=== PATIENT | female | born 1970 | race Caucasian/White ===

== ENCOUNTER 2019-02-06 14:00 | Observation (INO) ==
[2019-02-06] MEDS ORDERED: ZOFRAN IV PRN (14:49)
[2019-02-06] MEDS ORDERED: TYLENOL PO PRN (14:49)
[2019-02-06 15:27] LABS: BASO# 0.01 X1000 (0.0-0.2); BASO% 0.2 % (0.0-0.8); IMM GRAN# 0.01 X1000 (0.0-0.04); IMM GRAN% 0.2 % (0.0-0.5); MCV 89.5 FL (81-99)
[2019-02-06 15:40] LABS: EOS# 0.18 X1000 (0.0-0.7); EOS% 3.8 % (0.0-10.0); HEMATOCRIT 34.8 % (37.0-47.0); HEMOGLOBIN 11.6 g/dL (12.0-16.0); LYMPH# 1.51 X1000 (1.2-3.4); LYMPH% 32.1 % (20.5-51.1); MCH 29.8 PG (27-31); MCHC 33.3 g/dL (33-37); MONO# 0.43 X1000 (0.11-0.59); MONO% 9.1 % (1.7-9.3); MPV 10.4 FL (7.4-10.4); NEUT# 2.57 X1000 (1.4-6.5); NEUT% 54.6 % (42.2-75.2); PLT 157 X1000 (130-400); RBC 3.89 XMIL (4.2-5.4); RDW 11.5 % (11.5-14.5); WBC 4.71 X1000 (4.8-10.8)
[2019-02-06 15:42] LABS: INR 0.94
[2019-02-06 15:43] LABS: PTT 29.5 Seconds (22.3-41.8)
[2019-02-06 15:51] LABS: AGAP 8; ALBUMIN 3.3 g/dL (3.5-5.0); ALKALINE PHOSPHATASE 125 U/L (32-104); BUN 13 mg/dL (8-22); CALCIUM 8.3 mg/dL (8.8-10.2); CHLORIDE 108 mmol/L (98-107); CK PROFILE 94 U/L (24-173); COSMO 283; CREATININE 0.7 mg/dL (0.5-0.9); ESTIMATED GFR > 60; GLUCOSE 135 mg/dL (70-104); GOT 15 U/L (10-30); GPT 10 U/L (10-36); POTASSIUM 4.1 mmol/L (3.5-5.1); SODIUM 141 mmol/L (136-145); TCO2 26 mmol/L (25-35); TOTAL PROTEIN 6.1 g/dL (6.3-8.3)
[2019-02-06] MEDS ORDERED: FLONASE NAS PRN (16:00)
[2019-02-06] MEDS: TORADOL PO PRN (17:42)
[2019-02-06] MEDS: LASIX IV SCH (17:42)
--- NOTE | 2019-02-06 18:41 | Extremity Venous Study ---
EXAM: Venous U/S Bilateral Legs 02/06/2019 HISTORY: le swelling TECHNIQUE: Venous ultrasound of the lower extremities with color Doppler flow COMMENT: The deep veins of the lower extremities are compressible and demonstrate normal color Doppler flow. There is no evidence of superficial venous thrombosis or abnormal fluid collections. IMPRESSION: No evidence of deep venous thrombosis. Electronically signed by Yeison Ellington 02/06/2019 6:39 PM
[2019-02-06] MEDS ORDERED: SYNTHROID PO ONE (18:42)
--- NOTE | 2019-02-06 19:09 | HISTORY AND PHYSICAL ---
PRIMARY CARE PROVIDER: VAUGHN Rogel. CHIEF COMPLAINT: Lower extremity swelling. HISTORY OF PRESENT ILLNESS: Ms. Kami Feldman is a 48-year-old female with a medical history of morbid obesity and a BMI of 50.8. She presented to the primary care provider today with complaints of a nonproductive cough with wheezing for at least 2 days along with more lower back pain, foot pain, leg pain, numbness in fingers, and increased weight gain by 10 pounds, along with worsening lower extremity edema for over a week, which she states comes and goes. She is prescribed Lasix but does not take it due to being on a school bus frequently as an aide, and states she has no way of actually going to the restroom during that time, so she is noncompliant with her Lasix, apparently. She also takes Lyrica for nerve pain as well. She had a chest x-ray that was performed in the office. It does not necessarily look like it is congested, but she does have a pretty decent amount of lower extremity edema, probably about 2 to 3+ swelling. She was directly admitted from the primary care provider. Her lab data is not very concerning for congestive heart failure, as her proBNP is normal. Her cardiac enzymes are normal. Normal sodium and potassium. Normal kidney function. There may be some mild anemia, but otherwise it looks okay, and her vital signs are stable as well. So we will do a workup and see what we can find out. Given the lower extremity edema, we will get an ultrasound of the lower extremities. PAST MEDICAL HISTORY: 1. Obstructive sleep apnea. Does not wear CPAP. 2. Anemia. 3. Gastroesophageal reflux disease. 4. Fibromyalgia. 5. Conversion disorder 6. Anxiety with panic attacks and depression . 7. Hypertension. 8. Migraines. PAST SURGICAL HISTORY: 1. Gastric bypass in 2003. 2. Scar removed from the head. 3. Cholecystectomy. 4. Right shoulder reconstruction. 5. Bilateral tubal ligation. 6. Hysterectomy. 7. D and C due to miscarriage. 8. Right knee surgery. 9. Removal of abdominal fold (panniculectomy). SOCIAL HISTORY: Quit smoking at age 28, but prior to that smoked more than 1 pack per day since the age of 14. Denies alcohol or illicit drug use. She is a community coordinator for high school. She has been to her for 29 years and has 2 children. FAMILY HISTORY: Mother has diabetes, cerebral small vessel disease. Father had myocardial infarction and congestive heart failure. Brother in his 40s with coronary disease and diabetes. Sister in her 40s with stroke and diabetes. Father also had diabetes and prostate cancer. ALLERGIES: Nabumetone and cortisone. HOME MEDICATIONS: 1. Lyrica 100 mg daily and 200 mg p.o. nightly. 2. Buprenorphine HCl/naloxone once sublingually daily. 3. Buspirone HCl 10 mg p.o. twice daily. 4. Cyclobenzaprine 10 mg p.o. every 8 hours. 5. Aspirin/Tylenol combination 1-2 every 6 hours p.r.n. 6. Fluticasone nasal spray. 7. Toradol 10 mg p.o. every 6 hours. 8. Lasix 40 mg p.o. daily. 9. Lexapro 20 mg p.o. daily. 10.Estrogens conjugate, 0.625 mg p.o. daily. 11.Telmisartan 80 mg p.o. daily. REVIEW OF SYSTEMS: A 14-point review of systems is completed, and all are negative except for those mentioned above in the HPI. PHYSICAL EXAMINATION: VITAL SIGNS: Temperature 97.9, heart rate 60, respiratory rate 20, blood pressure 129/78, O2 saturation 95% on room air. GENERAL: Ms. Kami Feldman is a 48-year-old female. She is in no acute distress. She is able to answer questions appropriately. HEENT: Atraumatic, normocephalic. Pupils equal, round, and reactive to light. Extraocular movements intact. Mucous membranes are moist. NECK: Trachea midline. CARDIOVASCULAR: S1 and S2, regular rate and rhythm. No rubs, gallops or murmurs. She does have lower extremity edema. It is about +2, pitting, maybe even +3, but mostly +2. She has +2 dorsalis pedis pulses and +2 radial pulses. Negative for JVD or carotid bruits. PULMONARY: Clear to auscultate. Bilateral breath sounds. No accessory muscle use or work of breathing noted. GI: Soft, nontender, nondistended. Positive bowel sounds x4. EXTREMITIES: Moves all extremities equally. Full range of motion. NEUROLOGIC: A O x3. Follows commands. Sensory is intact. SKIN: Warm, dry and intact. LABORATORY DATA: White blood cells 4000, hemoglobin 11, hematocrit 34, platelet count 157. INR 0.94, PTT 29.5. Sodium 141, potassium 4.1, BUN 13, creatinine 0.7, glucose 135. Calcium 8.3, magnesium 1.7, bilirubin 0.30. AST 15, ALT 10, alkaline phosphatase 125. CK 94, troponin less than 0.01, proBNP 56. Albumin 3.3, serum lactate 1.4. TSH is 2.22, free T4 is 0.83. Urinalysis pending. IMAGING: None yet, but there has been a chest x-ray ordered. Also waiting for an EKG. ASSESSMENT/PLAN: 1. Complaints of lower extremity edema and swelling with weight gain with pain in the hips all the way down the legs. Her ProBNP is normal. We do have an echocardiogram ordered. Apparently she is on pretty good doses of Lyrica, which can increase the risk of lower extremity peripheral edema as well, so those will be held. 2. Complaints of nonproductive cough with wheezing for 2 days, but this is not obvious on auscultation, and there are no signs or symptoms of respiratory distress or difficulties with breathing. She is tolerating room air. Waiting on chest x-ray. Will evaluate that. White count is normal. She is afebrile. 3. Fibromyalgia. 4. Gastroesophageal reflux disease. Will do a proton pump inhibitor if that is on her home medications. 5. Anemia that appears stable. 6. History of anxiety, panic attacks and depression. Will resume those medications once they are verified. 7. Hypertension. It does not look like she is on anything for that, and her blood pressure is stable. 8. Deep venous thrombosis prophylaxis with sequential compression devices. Dictated by VAUGHN Nguyễn for Arnold Hoyos MD cc: VAUGHN Nguyễn MD
[2019-02-06 19:58] LABS: BILIRUBIN URINE NEGATIVE (NEGATIVE); BLOOD URINE NEGATIVE (NEGATIVE); CLARITY CLEAR (CLEAR); COLOR YELLOW; GLUCOSE URINE NEGATIVE (NEGATIVE); KETONE URINE NEGATIVE (NEGATIVE); LEUKOCYTES URINE NEGATIVE (NEGATIVE); NITRITE URINE NEGATIVE (NEGATIVE); PH URINE 6.5; PROTEIN URINE NEGATIVE (NEGATIVE); SP GRAVITY URINE 1.005; UROBILINOGEN URINE NORMAL
[2019-02-06 20:18] LABS: URINE SOURCE CLEAN CATCH
--- NOTE | 2019-02-06 20:18 | HISTORY AND PHYSICAL ---
ADDENDUM: She was admitted directly from clinic for chest congestion and lower extremity edema. This has been getting worse for the last week. In any case, the patient was seen outpatient. She had 2 to 3+ pitting edema. She had rales on exam. I do not think she was particularly hypoxic when she came in. Vitals were pretty stable, but she has been complaining of tight swelling in her lower extremities. She does not have a history. Cardiac history: She says she has had sinus bradycardia before but no clear history of heart failure. She is on Suboxone. She is on fairly high dose Lyrica up to 300 mg a day. So, in any case, the patient was placed in observation. We will start diuretics and pursue workup which at this point I think she has got peripheral edema that may be secondary to morbid obesity. She is on pregabalin. Will rule out DVT, CHF, nephrotic syndrome, things of that nature. It does appear that she has some hypothyroidism. Her TSH is normal, but her free T4 is low. I would consider initiating some thyroid therapy but will see. cc: Arnold Hoyos MD
[2019-02-06 20:19] LABS: URINE BACTERIA 1+ /HFP; URINE CAST NONE SEEN /LPF; URINE CRYSTAL NONE SEEN /HPF; URINE EPITHELIAL CELLS >10 /HPF (<10); URINE RBC <10 /HPF (<10); URINE WBC <10 /HPF (<10); URINE YEAST NONE SEEN /HPF
[2019-02-06] MEDS: SUBOXONE 2 MG/0.5 MG FILM SL SCH (20:40)
[2019-02-06] MEDS: FLEXERIL PO PRN (20:40)
[2019-02-06] MEDS: BUSPAR PO SCH (20:40)
[2019-02-07] MEDS: LASIX IV SCH (04:15)
[2019-02-07] MEDS: SYNTHROID PO SCH (06:14)
--- NOTE | 2019-02-07 07:30 | Diag Imaging Result Doc PS360 ---
EXAM: CHEST-2 VIEWS 02/07/2019 HISTORY: hypoxia TECHNIQUE: PA and lateral chest COMMENT: There is no evidence of acute cardiac or pulmonary disease and compared to 03/27/2016 there has been no significant change. IMPRESSION: No acute disease. Electronically signed by Yeison Ellington 02/07/2019 7:28 AM
[2019-02-07 07:53] LABS: BASO# 0.01 X1000 (0.0-0.2); BASO% 0.2 % (0.0-0.8); EOS# 0.17 X1000 (0.0-0.7); EOS% 3.9 % (0.0-10.0); HEMATOCRIT 33.7 % (37.0-47.0); IMM GRAN# 0.01 X1000 (0.0-0.04); IMM GRAN% 0.2 % (0.0-0.5); LYMPH# 1.72 X1000 (1.2-3.4); LYMPH% 39.4 % (20.5-51.1); MCH 29.3 PG (27-31); MCHC 32.6 g/dL (33-37); MCV 89.6 FL (81-99); MONO# 0.46 X1000 (0.11-0.59); MONO% 10.6 % (1.7-9.3); NEUT# 1.99 X1000 (1.4-6.5); NEUT% 45.7 % (42.2-75.2); PLT 158 X1000 (130-400); RBC 3.76 XMIL (4.2-5.4); RDW 11.6 % (11.5-14.5); WBC 4.36 X1000 (4.8-10.8)
[2019-02-07 08:24] LABS: AGAP 9; ALBUMIN 3.4 g/dL (3.5-5.0); ALKALINE PHOSPHATASE 126 U/L (32-104); BUN 14 mg/dL (8-22); CALCIUM 7.9 mg/dL (8.8-10.2); CHLORIDE 107 mmol/L (98-107); CK PROFILE 80 U/L (24-173); COSMO 285; CREATININE 0.7 mg/dL (0.5-0.9); ESTIMATED GFR > 60; GLUCOSE 124 mg/dL (70-104); GOT 15 U/L (10-30); GPT 10 U/L (10-36); MAGNESIUM 1.7 mg/dL (1.5-2.7); POTASSIUM 4.2 mmol/L (3.5-5.1); SODIUM 142 mmol/L (136-145); TCO2 26 mmol/L (25-35); TOTAL PROTEIN 5.8 g/dL (6.3-8.3)
[2019-02-07] MEDS: SUBOXONE 2 MG/0.5 MG FILM SL SCH ×2 (08:41→23:21)
[2019-02-07] MEDS: LEXAPRO PO SCH (08:41)
[2019-02-07] MEDS: BUSPAR PO SCH ×2 (08:41→23:21)
[2019-02-07] MEDS ORDERED: MICARDIS PO SCH (09:00)
[2019-02-07] MEDS: TORADOL PO PRN ×2 (12:44→23:35)
[2019-02-07] MEDS: PREMARIN PO SCH (16:50)
--- NOTE | 2019-02-07 18:35 | PROGRESS NOTE ---
DATE: 02/07/2019 SUBJECTIVE: Patient has no focal complaints except numbness and tingling and she still has pitting edema. The patient is stable. OBJECTIVE: Blood pressure is 97/61, heart rate of 81, respiratory rate 20, temperature 98.3 degrees, 96% on room air.Cardiovascular: Regular rate and rhythm. Pulmonary: Bilateral breath sounds clear to auscultation. GI: Soft, nontender, nondistended. Bowel sounds are positive. LABORATORY DATA: Her white count is 4, hemoglobin and hematocrit 11, 33, platelets 158,000. Basic was normal. Her T4 was low at 0.83 with a normal TSH. PROBLEM LIST: Lower extremity edema, at this point I think it is really related to progressive weight gain. Her Body mass index is 50 so she is definitely at risk for just that being component. She may have some degree of hypothyroidism. She has also been on Lyrica. I think it is very unlikely she does not have deep vein thrombosis, she does not have renal failure, she does not have cirrhosis and she does not have heart failure. I do not think she does in any case but we will continue to monitor. I am waiting on her echocardiogram report before we decide that we need to get her discharged, hopefully that will happen within next 12-24 hours. DISPOSITION: Pending clinical status. We will continue to follow but we will have to discharge her tomorrow if she does not have an objective diagnosis besides peripheral edema. We may have to work with her with some Micro-K if she is having issues from that perspective. cc: Arnold Hoyos MD
--- NOTE | 2019-02-07 21:01 | Diag Imaging Result Doc PS360 ---
EXAM: CERVICAL SPINE COMPLETE 02/07/2019 HISTORY: paresthesias TECHNIQUE: Cervical spine series with obliques seven views COMMENT: There is no evidence of acute fracture or subluxation. There is anterior osteophyte formation at C5-6. Intervertebral foramina appear to be patent bilaterally. IMPRESSION: Degenerative disc disease at C5-6. Electronically signed by Yeisno Ellington 02/07/2019 8:59 PM
[2019-02-07] MEDS: FLEXERIL PO PRN (23:21)
[2019-02-07] MEDS: LASIX PO SCH (23:21)
[2019-02-08] MEDS: SYNTHROID PO SCH (06:31)
[2019-02-08 08:11] LABS: EOS# 0.12 X1000 (0.0-0.7); EOS% 2.9 % (0.0-10.0); HEMATOCRIT 32.1 % (37.0-47.0); HEMOGLOBIN 10.6 g/dL (12.0-16.0); LYMPH# 1.64 X1000 (1.2-3.4); LYMPH% 40.3 % (20.5-51.1); MCH 29.3 PG (27-31); MCV 88.7 FL (81-99); MONO# 0.35 X1000 (0.11-0.59); MONO% 8.6 % (1.7-9.3); MPV 10.4 FL (7.4-10.4); NEUT# 1.96 X1000 (1.4-6.5); NEUT% 48.2 % (42.2-75.2); PLT 147 X1000 (130-400); RBC 3.62 XMIL (4.2-5.4); RDW 11.4 % (11.5-14.5); WBC 4.07 X1000 (4.8-10.8)
[2019-02-08 08:35] LABS: AGAP 9; BUN 15 mg/dL (8-22); CALCIUM 7.7 mg/dL (8.8-10.2); CHLORIDE 107 mmol/L (98-107); COSMO 286; CREATININE 0.7 mg/dL (0.5-0.9); ESTIMATED GFR > 60; GLUCOSE 106 mg/dL (70-104); POTASSIUM 3.9 mmol/L (3.5-5.1); SODIUM 143 mmol/L (136-145); TCO2 27 mmol/L (25-35)
[2019-02-08] MEDS: LASIX PO SCH (10:31)
[2019-02-08] MEDS: LEXAPRO PO SCH (10:31)
[2019-02-08] MEDS: PREMARIN PO SCH (10:32)
[2019-02-08] MEDS: BUSPAR PO SCH (10:32)
[2019-02-08] MEDS: SUBOXONE 2 MG/0.5 MG FILM SL SCH (10:32)
--- NOTE | 2019-02-08 15:32 | DISCHARGE SUMMARY ---
ADMISSION DATE: 02/06/2019 DISCHARGE DATE: DISCHARGE DIAGNOSES: 1. Peripheral edema. 2. Volume overload associated with morbid obesity. 3. Possibly some subclinical hypothyroidism. 4. Anemia of chronic inflammation. 5. Possible medications side effect. HOSPITAL COURSE: The patient was admitted. There was concern over possible CHF. She had weakness and swelling in her legs. She is on a fairly high-dose amount of Lyrica, which is fairly above 10% cause of peripheral edema. I encouraged her to stop that. She had venous studies. Those were negative. Her urine did not show any proteinuria. She had no renal failure. She had no liver failure. Albumin was a little bit on the low side after hydration. Her free T4 was low at 0.83 with a normal TSH of 2, which I do not typically treat that. Since she was symptomatic, hypothyroid, and overweight, I did start her on some Synthroid. Sharmin Larson can decide if he wants to continue that. Her chest x-ray was clear, though there was no evidence of pulmonary edema, and her echo did not show any evidence of heart failure so I felt she was stable to go home. She had normal LV function and mild tricuspid regurgitation. DISCHARGE CONDITION: Stable. I would recommend follow up in a week just to make sure she is improved. Her blood pressure has been on the low side with the Lasix, so I am going to encourage her to hold her telmisartan until she can follow up with her PCP just because we put her on Lasix twice a day. I think this is again related to just obesity and possible medication side effect. She has a poor outlook on things, but she also does not feel like these are thing she can necessarily change or control. In any case, refer to But in any case, refer her to Sharmin Larson, nurse practitioner, and evaluate further. cc: Arnold Hoyos MD
[2019-02-08 16:10] VITALS: BP 85/48
--- NOTE | 2019-02-09 09:31 | ECHO REPORT ---
ORDER DATE: 02/06/2019 MEASUREMENTS: Septal thickness 1.0, posterior wall thickness 0.9, left ventricular internal diameter in diastole 5.4 and in systole 3.4, aortic root 2.96, left atrium 3.9. SUMMARY: 1. Fair quality study. 2. Aortic valve is trileaflet and opens normally on 2-dimensional images. Mitral, tricuspid and pulmonic valves are without evidence of structural abnormality with trace mitral regurgitation, very mild mitral regurgitation, and mild pulmonic insufficiency. The estimated systolic PA pressure by Doppler is 40 mmHg, suggesting very mild pulmonary hypertension. The aortic root is normal in size. 3. Normal left ventricular dimensions demonstrated. Estimated left ventricular ejection fraction appears to be at least 65%. No regional wall motion abnormalities are evident. Left atrium is borderline enlarged. The right atrium and right ventricle are normal in size with grossly preserved right ventricular systolic function. 4. No pericardial effusion. 5. Appearance of inferior vena cava suggests normal central venous pressure. cc: MD Dinah De Anda CRNP
--- NOTE | 2019-02-09 10:11 | EKG Report ---
Test Performed on : 02/07/2019 10:27:38 AM Test Reason : chf Blood Pressure : / mmHG Vent. Rate : 062 BPM Atrial Rate : 062 BPM P-R Int : 158 ms QRS Dur : 092 ms QT Int : 436 ms P-R-T Axes : 055 035 034 degrees QTc Int : 442 ms Normal sinus rhythm. Normal ECG When compared with ECG of 21-JUN-2017 15:00, No significant change was found Unconfirmed Result
== END 2019-02-08 16:35 | disposition home or self-care (01) ==
LOC: P.DIRADM 14:00 → INTOOBSV 14:00 → P.MEDSURG 14:05
PROVIDERS: ATTEND Internal Medicine
CPT/HCPCS: 71020; 71046; 72050; 80048; 80053; 81001; 82550; 82607; 82746; 83605; 83735; 83880; 84439; 84443; 84466; 84484; 85025; 85610; 85730; 93005; 93306; 93970; 94761; 94799; A9270; J1940